=== PATIENT | female | born 2000 | race Caucasian/White ===

== ENCOUNTER 2023-02-12 15:27 | Observation (INO) ==
[2023-02-12] MEDS ORDERED: Morphine 4 MG/ML VIAL (1 ml) IV ONE (15:33)
[2023-02-12] MEDS ORDERED: NS 0.9% 1000 ml BAG 1,000 ML IV ONE (15:34)
[2023-02-12] MEDS ORDERED: Ondansetron 4 mg VIAL 2 MG/ML 2 ml VIAL IV ONE ×2 (15:34→19:50)
[2023-02-12 15:55] LABS: ABS Eosinophils 0.1 10^3/uL (0.0-0.5); ABS Lymphocytes 1.8 10^3/uL (1.0-4.8); ABS Monocytes 0.4 10^3/uL (0.0-0.9); ABS Neutrophils 6.3 10^3/uL (1.5-7.6); ABS Nucleated RBC 0.01 10^3/ul; Eosinophil % 0.9 %; Hematocrit 36.7 % (35-45); Hemoglobin 13.3 g/dL (11.5-14.3); Lymphocyte % 21.1 %; Mean Corpuscular Hemoglobin 31.2 pg (27-33); Mean Corpuscular Hgb Conc 36.2 g/dL (31-36); Mean Corpuscular Volume 86.1 fL (80-97); Mean Platelet Volume 7.9 fL (7.5-11.2); Nucleated Red Blood Cells % 0.1 %/100WBC (0.0-0.8); Platelet Count 270 10^3/uL (150-450); Red Blood Count 4.26 10^6/uL (3.63-4.92); Red Cell Distribution Width 13.1 % (12-17); White Blood Count 8.6 10^3/uL (3.8-11.8)
[2023-02-12 16:02] LABS: Albumin 4.6 g/dL (3.2-5.2); Potassium 3.8 mmol/L (3.5-5.0); Total Bilirubin 0.8 mg/dL (0.2-1.0)
[2023-02-12 16:08] LABS: Albumin/Globulin Ratio 1.6 (1-3); Creatinine, Serum 0.53 mg/dL (0.51-0.95); Globulin 2.8 g/dL (2-4); Total Protein 7.4 g/dL (6.4-8.9); eGFR CKD-EPI 133.2 (>60)
[2023-02-12] MEDS ORDERED: NS 0.9% 1000 ml BAG 1,000 ML IV SCH (22:00)
[2023-02-12] MEDS ORDERED: Lactated Ringers 1000 ml BAG 1,000 ML IV ONE (22:42)
[2023-02-13 00:44] LABS: Urine Appearance Cloudy; Urine Bilirubin Negative (Negative); Urine Blood Negative (Negative); Urine Color Amber; Urine Glucose Negative (Negative); Urine Ketones 2+ (Negative); Urine Nitrite Negative (Negative); Urine Protein 1+(30 mg/dL) (Negative); Urine Specific Gravity 1.025 (1.002-1.030); Urine Urobilinogen Positive (Negative)
[2023-02-13 00:46] LABS: Urine Amorphous Crystals Present (Absent); Urine Bacteria 3+ (Absent); Urine Red Blood Cell Absent (Absent); Urine Squamous Epithelial Cell Present (Absent); Urine White Blood Cell 2+(11-20/hpf) (Absent)
[2023-02-13] MEDS: Ondansetron 4 mg VIAL 2 MG/ML 2 ml VIAL IV PRN ×2 (01:43→04:49)
[2023-02-13] MEDS: Morphine 2 MG/ML SYRINGE IV PRN ×4 (01:43→07:47)
[2023-02-13] MEDS ORDERED: Piperacillin/Tazobac 3.375 BAG 3.375 GM/100 ML BAG IV SCH (02:00)
[2023-02-13 07:16] LABS: ABS Eosinophils 0.2 10^3/uL (0.0-0.5); ABS Lymphocytes 1.8 10^3/uL (1.0-4.8); ABS Monocytes 0.4 10^3/uL (0.0-0.9); ABS Neutrophils 4.6 10^3/uL (1.5-7.6); ABS Nucleated RBC 0.01 10^3/ul; Eosinophil % 2.4 %; Hematocrit 27.6 % (35-45); Hemoglobin 10.1 g/dL (11.5-14.3); Mean Corpuscular Hemoglobin 32.1 pg (27-33); Mean Corpuscular Hgb Conc 36.8 g/dL (31-36); Mean Corpuscular Volume 87.2 fL (80-97); Mean Platelet Volume 7.9 fL (7.5-11.2); Nucleated Red Blood Cells % 0.1 %/100WBC (0.0-0.8); Platelet Count 174 10^3/uL (150-450); Red Blood Count 3.16 10^6/uL (3.63-4.92); Red Cell Distribution Width 13.2 % (12-17)
[2023-02-13 07:29] LABS: Albumin 3.2 g/dL (3.2-5.2); Albumin/Globulin Ratio 1.7 (1-3); C Reactive Protein 1.36 mg/L (<8.01); Calcium 7.9 mg/dL (8.6-10.3); Creatinine, Serum 0.42 mg/dL (0.51-0.95); Globulin 1.9 g/dL (2-4); Potassium 3.4 mmol/L (3.5-5.0); Total Bilirubin 0.6 mg/dL (0.2-1.0); Total Protein 5.1 g/dL (6.4-8.9); eGFR CKD-EPI 140.9 (>60)
[2023-02-13] MEDS ORDERED: Ondansetron ODT 4 mg TAB 4 MG TAB SL PRN (08:37)
[2023-02-13] MEDS ORDERED: Ondansetron ODT 4 mg TAB 4 MG TAB ONE (08:44)
[2023-02-13] MEDS: Ondansetron ODT 4 mg TAB 4 MG TAB SL PRN ×2 (08:46→15:31)
[2023-02-13] MEDS ORDERED: D5W 1/2 NS KCl 20 meq 1000 ml 1,000 ML IV SCH (09:00)
[2023-02-13 14:33] VITALS: BP 103/62
== END 2023-02-13 15:45 | disposition home or self-care (01) ==
LOC: ED 15:27 → INTOOBSV 22:28 → EDHOLD 22:28 → SSU 02-13 01:01
PROVIDERS: ADMIT Surgery; ATTEND Surgery